=== PATIENT | male | born 1975 | race American Indian/Alaskan Native ===

== ENCOUNTER 2020-11-19 11:41 | Emergency (ER) | payer SELFPAY ==
--- NOTE | 2020-11-19 11:58 | Emergency Department Report ---
Blank Doc - Documentation Documentation: 45-year-old male that presents with left-sided numbness and tingling sensation. Patient has history of stroke. Patient has history of right-sided weakness. Patient has nausea with generalized weakness. Patient stated symptoms all started several days ago. Exam: Slight right-sided weakness. No facial drooping. ANO x3. EOMI. 1- This is a initial triage assessment/medical screening only. Full assessment and work-up will be completed once the patient is in proper hospital gown, ED bed and in a private room setting. This initial assessment/diagnostic orders/clinical plan/ treatment(s) is/are subject to change based on pt's health status, clinical progression and re-assessment by fellow clinical providers in the ED. Further treatment and workup at subsequent clinical providers discretion. Patient/guardians urged not to elope from ED as their condition may be serious if not clinically assessed and managed. 2-stroke protocol initiated
[2020-11-19 12:10] VITALS: BP 139/92
--- NOTE | 2020-11-19 13:34 | Cat Scan Report ---
CT BRAIN: 11/19/2020 INDICATION / CLINICAL INFORMATION: Stroke symptoms. COMPARISON: FINDINGS: BRAIN/INTRACRANIAL STRUCTURES: Unenhanced CT images of the brain were obtained. There is prominent area of chronic cortical and subcortical encephalomalacia in the left cerebral hem isphere, in the distribution of the left middle cerebral artery. This is the appearance of chronic is chemic injury. Small lacunar changes are present in the basal ganglia bilaterally. There is no definite evidence of acute large vessel territory ischemic injury. There is no evidence o f hemorrhage or mass. There are no abnormal extra-axial fluid collections. EXTRACRANIAL STRUCTURES: Unremarkable. IMPRESSION: Chronic ischemic changes. No evidence of acute ischemic change. No evidence of hemorrhage. All CT scans at this location are performed using dose reduction to ALARA by means of automated expos ure control. Signer Name: Armand Trejo MD Signed: 11/19/2020 1:29 PM Workstation Name: [id number]
[2020-11-19 13:47] LABS: Basophils % (Auto) 0.8 % (0.0-1.8); Eosinophils # (Auto) 0.1 K/mm3 (0.0-0.4); Eosinophils % (Auto) 2.3 % (0.0-4.3); Hematocrit 44.3 % (35.5-45.6); Lymphocytes # (Auto) 1.5 K/mm3 (1.2-5.4); Lymphocytes % (Auto) 23.1 % (13.4-35.0); Mean Corpuscular HGB Conc 34 % (32-34); Mean Corpuscular Volume 91 fl (84-94); Monocytes # (Auto) 0.6 K/mm3 (0.0-0.8); Monocytes % (Auto) 9.3 % (0.0-7.3); Platelet Count 207 K/mm3 (140-440); Red Blood Count 4.89 M/mm3 (3.65-5.03); Red Cell Distribution Width 13.1 % (13.2-15.2)
[2020-11-19 13:58] LABS: INR 1.05 (0.87-1.13)
[2020-11-19 13:59] LABS: Alanine Aminotransferase 15 units/L (7-56); Albumin 3.7 g/dL (3.9-5); Blood Urea Nitrogen 11 mg/dL (9-20); Calcium 9.1 mg/dL (8.4-10.2); Creatine Kinase MB 2.9 ng/mL (0.0-4.0); Hemolysis Index 60; Partial Thromboplastin Time 25.2 Sec. (24.2-36.6); Thrombin Time 20.3 Sec. (15.1-19.6)
[2020-11-19 14:02] LABS: BUN/Creatinine Ratio 16
== END 2020-11-19 19:00 | disposition left against medical advice (07) ==
LOC: ED 11:41
DX: R53.1 Weakness (principal); R11.0 Nausea; R79.1 Abnormal coagulation profile; Z53.21 Procedure and treatment not carried out due to patient leaving prior to being seen by health care provider
CPT/HCPCS: 36415; 70450; 80053; 82550; 82553; 82962; 84484; 85025; 85610; 85670; 85730